=== PATIENT | male | born 1950 | race Caucasian/White ===

== ENCOUNTER → 2018-09-12 | Outpatient (CLI) | payer OTHER ==
--- NOTE | 2018-09-16 10:31 | PCVCIMAG ---
APPROVED REPORT Study performed: 09/12/2018 08:30:29 EXAM: Comprehensive 2D, Doppler, and color-flow Echocardiogram Patient Location: Echo lab Status: routine BSA: 2.30 HR: 59 bpmBP: 128/70 mmHg Rhythm: NSR Other Information Study Quality: Adequate Risk Factors: Cardiac Risk Factors: Hyperlipidemia, HTN Indications Elevated CA Score Dyspnea on Exertion Edema 2D Dimensions IVSd: 11.69 (7-11mm)LVOT Diam: 22.00 (18-24mm) LVDd: 49.60 mm PWd: 11.48 (7-11mm)Ascending Ao: 31.21 (22-36mm) LVDs: 36.04 (25-40mm) Left Atrium: 37.84 (27-40mm) Aortic Root: 33.09 mm LV Single Plane 4CH: 53.00 % LV Single Plane 2CH: 61.27 % Biplane EF: 52.7 % Volumes Left Atrial Volume (Systole) Single Plane 4CH: 28.25 mLSingle Plane 2CH: 35.68 mL LA ESV Index: 15.00 mL/m2 Aortic Valve AoV Peak Hawk.: 1.37 m/s AO Peak Gr.: 7.50 mmHg AI Vmax: 2.77 m/s AI [place]: 1.80 m/s2 AI PHT: 452.02 ms Mitral Valve E/A Ratio: 0.7 MV Decel. Time: 336.80 ms MV E Max Hawk.: 0.53 m/s MV A Hawk.: 0.73 m/s IVRT: 76.12 ms TDI E/Lateral E': 5.30E/Medial E': 7.57 Medial E' Hawk.: 0.07 m/s Lateral E' Hawk.: 0.10 m/s Pulmonary Valve PV Peak Hawk.: 1.20 m/sPV Peak Gr.: 5.73 mmHg MA End Vmax: 1.02 m/s Pulmonary Vein P Vein S: 0.55 m/sP Vein A: 0.27 m/s P Vein D: 0.62 m/sP Vein A Dur.: 117.6 msec P Vein S/D Ratio: 0.89 Tricuspid Valve TR Peak Hawk.: 2.46 m/sRAP Estimate: 7.00 mmHg TR Peak Gr.: 24.19 mmHg PA Pressure: 31.00 mmHg Left Ventricle The left ventricle is normal size. There is normal LV segmental wall motion. Borderline concentric left ventricular hypertrophy. Left ventricular systolic function is normal. The left ventricular ejection fraction is within the normal range. LVEF is 55-60%. Grade I - abnormal relaxation pattern. Right Ventricle The right ventricle is normal size. The right ventricular systolic function is normal. Atria The left atrium size is normal. The right atrium size is normal. Aortic Valve The aortic valve is normal in structure. Mild to moderate aortic regurgitation. There is no aortic valvular stenosis. Mitral Valve The mitral valve is normal in structure. There is no mitral valve regurgitation noted. No evidence of mitral valve stenosis. Tricuspid Valve The tricuspid valve is normal in structure. Trace tricuspid regurgitation. Pulmonary artery pressure is 31 mmHg. Pulmonic Valve The pulmonary valve is normal in structure. Mild to moderate pulmonic regurgitation. Great Vessels The aortic root is normal in size. IVC is normal in size and collapses >50% with inspiration. Pericardium There is no pericardial effusion. <Conclusion> The left ventricle is normal size. Left ventricular systolic function is normal. Grade I - abnormal relaxation pattern. The right ventricle is normal size. The left atrium size is normal. Mild to moderate aortic regurgitation. The mitral valve is normal in structure. Trace tricuspid regurgitation. Pulmonary artery pressure is 31 mmHg.
--- NOTE | 2018-09-16 10:36 | PCVCIMAG ---
APPROVED REPORT Imaging Protocol: Rest Tc-99m/Stress Tc-99m 1 day Study performed: 09/12/2018 09:45:47 Indication: RUIZ, High Ca Score Patient Location: Out-Patient Stress Nurse: Lucía Medina RN IN Tech:Mee Albright [facility] Ht: 6 ft 0 in Wt: 240 lbs BSA: 2.30 m2 HR: 65 bpm BP: 128/70 mmHg BMI: 32.54 Rhythm: SR, RBBB Medical History Medical History: HTN, Hyperlipidemia, Age Medications: Aspirin, Valsartan, Bystolic, Potassium Chloride Allergies: No known drug allergies Pretest Chest Pain Characteristics: No chest pain Exercise History: Indeterminate Meds Held (24 hrs): Bystolic Resting Data Rest SPECT myocardial perfusion imaging was performed in supine position 45 minutes following the intravenous injection of 10.6 mCi of Tc-99m Sestamibi. Time of rest injection: 0830 Date: 09/12/2018 Administration Route: IV Administration Site: Right Hand Exercise Stress At peak stress, the patient was injected intravenously with 34.3mCi of Tc-99m Sestamibi. Time of stress injection: 1030 Date: 09/12/2018 Patient continued to exercise for 1 minute(s). Gated Stress SPECT was performed 30 minutes after stress injection. The images were gated to evaluate regional wall motion and calculate left ventricular ejection fraction. Stress Test Details Stress Test: Exercise stress testing was performed using a Jose A protocol. HRMax Heart Rate (APMHR): 154 bpm Resting HR: 65 bpmTarget HR (85% APMHR): 130 bpm Max HR Achieved: 144 bpm % of APMHR: 93 Recovery HR: 82 bpm HR response to stress: Normal HR response to stress BP Resting BP: 128/70 mmHg Recovery BP: 162/68 mmHg BP response to stress: Normal blood pressure response to stress. ECG Resting ECG: SR, RBBB Stress ECG: ST, RBBB ST Change: Nondiagnostic Arrhythmia: VPC's Recovery ECG: SR, RBBB Clinical Reason for Termination: Dyspnea Stress Symptoms: Dyspnea Exercise duration: 7 min 37 sec Exercise capacity: 10.4 METs Overall Exercise Capacity for Age: Average Scale: Active Angina Score: None Symptoms resolved during recovery. Study Quality Study: Good Artifact: Mild Diaphragmatic artifact Study Data Post stress, the left ventricular ejection was 77%.. SSS: 0 SRS: 0 SDS: 0 TID = 0.70. Perfusion There is a small area of mildly reduced uptake in the basal segment of the inferolateral wall which is seen on the stress images as well as the resting images. This area thickens and moves normally and is most consistent with attenuation artifact. Wall Motion Normal left ventricular wall motion. Nuclear Conclusion ECG Findings: non-diagnostic Clinical Findings: non-ischemic Nuclear Findings: negative for ischemia Exercise Capacity: normal Left Ventricular Function: normal Risk Study: low This study is of low probability for inducible ischemia or prior infarct. Normal global and segmental LV systolic function. Artifact: Mild Diaphragmatic artifact
== END | disposition home or self-care (01) ==
LOC: PCVCIMAG 08:33
PROVIDERS: ATTEND Internal Medicine Cardiovascular Disease
DX: I06.1 Rheumatic aortic insufficiency (principal); R60.0 Localized edema; R06.09 Other forms of dyspnea; R93.1 Abnormal findings on diagnostic imaging of heart and coronary circulation
CPT/HCPCS: 78452; 93017; 93306; A9500